=== PATIENT | female | born 1960 | race Hispanic/Latino ===

== ENCOUNTER → 2023-03-02 | Outpatient (CLI) | payer MEDICAID | END | disposition home or self-care (01) | LOC: SHCH 10:03 | PROVIDERS: ATTEND Student in an Organized Health Care Education/Training Program | DX: I50.9 Heart failure, unspecified (principal) | CPT/HCPCS: 93306 ==

== ENCOUNTER → 2023-10-30 | Outpatient (CLI) | payer MEDICAID, OTHER ==
[2023-10-30 12:44] LABS: CHOLESTEROL 109 mg/dL (<200); HDL CHOLESTEROL 63 mg/dL (35-85); LDL DIRECT 44 mg/dL (0-99); TRIGLYCERIDES 52 mg/dL (30-200)
== END | disposition home or self-care (01) ==
LOC: LAB 11:18
PROVIDERS: ATTEND Student in an Organized Health Care Education/Training Program
DX: I10 Essential (primary) hypertension (principal); Z95.5 Presence of coronary angioplasty implant and graft
CPT/HCPCS: 36415; 80061; 83036

== ENCOUNTER → 2024-05-16 | Outpatient (CLI) | payer SELFPAY ==
[2024-05-16 12:41] LABS: CHOLESTEROL 128 mg/dL (<200); HDL CHOLESTEROL 57 mg/dL (35-85); LDL DIRECT 56 mg/dL (0-99); TRIGLYCERIDES 91 mg/dL (30-200)
== END | disposition home or self-care (01) ==
LOC: LAB 10:41
PROVIDERS: ATTEND Student in an Organized Health Care Education/Training Program
DX: I10 Essential (primary) hypertension (principal); E78.5 Hyperlipidemia, unspecified
CPT/HCPCS: 36415; 80061